=== PATIENT | male | born 1970 | race Caucasian/White ===

== ENCOUNTER 2018-03-29 10:20 | Emergency (ER) | payer OTHER ==
[~2018-03-29] VITALS: Ht 188 cm; Wt 98.4 kg
[2018-03-29 10:22] VITALS: BP 151/84
--- NOTE | 2018-03-29 11:59 | ED NECK/BACK PAIN COMPLAINT ---
History of Present Illness General Chief Complaint: Low Back Pain/Injury Stated Complaint: LOWER BACK PAIN NO INJURY Source: patient Exam Limitations: no limitations Vital Signs & Intake/Output Vital Signs & Intake/Output Vital Signs Date Time Temp Pulse Resp B/P B/P Pulse O2 O2 Flow FiO2 Mean Ox Delivery Rate 03/29 1204 97 03/29 1022 97.7 86 18 151/84 98 Room Air Room Air Allergies Coded Allergies: Penicillins (Intermediate, RASH 03/29/18) Reconcile Medications No Known Home Medications Triage Note: PT TO ED WITH C/O LOW BACK PAIN DOWN LEFT LEG, PT HAS HX OF BULGING DISCS L4-L5, HAD A KICK BOXING INJURY, AND SHOVELING, FELT A LITTLE BETTER, THIS AM INCREASED PAIN, DIFFICULTY MOVING. Triage Nurses Notes Reviewed? yes Onset: Abrupt Duration: day(s):, constant, getting worse Timing: recent history Quality/Severity: moderate, severe Location: lumbar spine HPI: 47-year-old male comes into the emergency room for further evaluation of severe low back pain that radiates down his left leg. Patient reports she's been having some low back issues with radiation down his legs since the beginning of 2017 in November. The symptoms were intermittent. Over last 2 days he reports significant increase in pain. Denies any urinary bowel function. Denies any genital numbness. Denies any abdominal pain fever chills vomiting. Any type of movement makes the pain worse. He comes in for further evaluation. (Ruiz Osman) Past History Travel History Traveled to [place] past 21 day No Medical History Any Pertinent Medical History? see below for history Neurological: NONE EENT: allergies Cardiovascular: NONE Respiratory: NONE Gastrointestinal: GERD Hepatic: NONE Renal: NONE Musculoskeletal: disk herniation Psychiatric: NONE Endocrine: Joseph's thyroiditis Blood Disorders: NONE Cancer(s): NONE Surgical History Surgical History: non-contributory Psychosocial History What is your primary language Guinean Tobacco Use: Never used ETOH Use: occasional use Illicit Drug Use: denies illicit drug use Family History Hx Contributory? No (Ruiz Osman) Review of Systems Review of Systems Constitutional: Reports: no symptoms. Eyes: Reports: no symptoms. Ears, Nose, Throat, Mouth: Reports: no symptoms. Respiratory: Reports: no symptoms. Cardiovascular: Reports: no symptoms. Gastrointestinal/Abdominal: Reports: no symptoms. Musculoskeletal: Reports: see HPI. Skin: Reports: no symptoms. Neurological/Psychological: Reports: see HPI. All Other Systems: Reviewed and Negative (Ruiz Osman) Physical Exam Physical Exam General Appearance: well developed/nourished, mild distress Head: atraumatic Eyes: Bilateral: normal appearance. Ears, Nose, Throat, Mouth: hearing grossly normal, moist mucous membrane Neck: normal inspection Respiratory: no respiratory distress Cardiovascular: regular rate/rhythm Back: normal inspection Extremities: normal range of motion Straight Leg Raising: Left: Pain at ____ degrees (10). Motor: Deficit L4 Right: No Deficit L4 Left: No Deficit L5 Right: No Deficit L5 Left: No Deficit S1 Right: No Deficit S1 Right: No Neurologic/Psych: awake, alert, oriented x 3, normal mood/affect Skin: intact, normal color, warm/dry Core Measures CVA/TIA Diagnosis: No (Ruiz Osman) Progress Differential Diagnosis: cauda equina syn, herniated disc, myofascial strain, sciatica, spinal cord inj Plan of Care: Orders Procedure Date/time Status MRI-LUMBAR SPINE 03/29 1200 Active Diagnostic Imaging: Viewed by Me: MRI. Discussed w/RAD: MRI. Radiology Impression: PATIENT: BOB EWING PRESENT AGE: 47 PATIENT ACCOUNT NO: [id number] : 71 LOCATION: [facility] ORDERING PHYSICIAN: Ruiz BOWER SERVICE DATE: 03/29/18-1199 EXAM TYPE: MRI - MRI-LUMBAR SPINE EXAMINATION: MR LUMBAR SPINE WITHOUT CONTRAST CLINICAL INFORMATION: Low back pain radiating down left leg. COMPARISON: MR images of lumbar spine, 06/19/2011 TECHNIQUE: MRI of the lumbar spine without contrast was obtained using routine sequences on a high-field 1.5 Vilma magnet. FINDINGS: VERTEBRAL BODIES AND PARASPINAL STRUCTURES: The lumbar vertebra have well preserved height and alignment. No fracture, subluxation, acute endplate erosion or paraspinal fluid collection. There are old Schmorl's nodes of several endplates, including the L3 and L5 endplates. CONUS MEDULLARIS AND CAUDA EQUINA: The conus medullaris is normal, terminating at the L1-L2 level. SPINAL LEVELS: L1-L2: The intervertebral disc has normal contour. No disc herniation. The central spinal canal and neural foramina are widely patent. L2-L3: Negligible bulging of the intervertebral disc. The central spinal canal and neural foramina are widely patent. L3-L4: Chronic loss of the T2 signal of the intervertebral disc. Chronic, mild disc bulge and superimposed, very small central disc protrusion without central canal or neural foraminal stenosis. L4-L5: No acute findings compared to 06/19/2011. Minimal disc bulge and minimal facet arthropathy. The central spinal canal and neural foramina are widely patent. L5- S1: The size of the left paracentral disc herniation has increased compared to 06/19/2011. The extruded disc compresses the transiting left S1 nerve root. No evidence of central canal or neural foraminal stenosis. IMPRESSION: Compared to 06/19/2011, the most significant interval change is at the L5-S1 level. The left paracentral disc herniation at L5-S1 has increased in size. The extruded disc compresses the transiting left S1 nerve root. DICTATED BY: Bob Barbosa MD DATE/TIME DICTATED:03/29/181328 TELETYPESETTER:CROW DATE/TIME TRANSCRIBED:03/29/181328 CONFIDENTIAL, DO NOT COPY WITHOUT APPROPRIATE AUTHORIZATION. <Electronically signed in Other Vendor System> SIGNED BY: Bob Barbosa MD 03/29/18 [id number] (Ruiz Osman) Departure Departure Disposition: HOME OR SELF CARE Condition: Stable Clinical Impression Primary Impression: Lumbar disc herniation Referrals: Cristina JANE,Damien Duran (PCP/Family) Additional Instructions: Take Percocet, Medrol Dosepak, Flexeril, and ibuprofen as prescribed. Follow-up with your orthopedic surgeon. Return if any other concerns. Please go over all results of today's visit with your primary care doctor. Contact your primary care doctor to let them know you were here in the emergency room. There may be nonspecific findings which may not be related to your visit today here in the emergency room but may require further evaluation and chronic monitoring by your primary care doctor. If you had a laceration today the chance of foreign body always remains. You should follow-up with your primary care doctor for recheck in 3-5 days for a wound check. If you had an x-ray done there is a chance that a fracture could have been missed on initial read and you should follow-up with your primary care doctor for repeat x-rays if symptoms persist. If your blood pressure was elevated here in the emergency room please have rechecked by hyour primary care doctor within the next 48. If you were prescribed a narcotic here in the emergency room or any type of controlled substances you're not allowed to drive while taking this medication or operate any type of heavy machinery. Narcotics can make you feel lightheaded dizziness nausea and can cause constipation. You may need to citrus picker a stool softener. Thank you for choosing [facility] emergency room. Please return to the emergency room immediately if you have any other concerns worsening of symptoms. Departure Forms: Customer Survey General Discharge Information Prescriptions: Current Visit Scripts No Known Home Medications Comments 03/29/2018 2:54:45 PM patient clinically looks well. Patient is in no apparent distress. Patient is nontoxic-appearing. Symptoms are most consistent with disc herniation. No motor weakness. Patient has appointment with orthopedic doctor on Tuesday. (Ruiz Osman) PA/PHARMACY SCHEDULER Co-Sign Statement Statement: ED Attending supervision documentation- [] I saw and evaluated the patient. I have also reviewed all the pertinent lab results and diagnostic results. I agree with the findings and the plan of care as documented in the PA's/PHARMACY SCHEDULER's documentation. [x] I have reviewed the ED Record and agree with the PA's/PHARMACY SCHEDULER's documentation. [] Additions or exceptions (if any) to the PAs/PHARMACY SCHEDULER's note and plan are summarized below: [] (Erlin Sneed DO
[2018-03-29] MEDS ORDERED: NAPROSYN500 M1 PO (12:12)
[2018-03-29] MEDS ORDERED: MEDROL4 M2 PO (12:12)
[2018-03-29] MEDS ORDERED: CYCLOBENZAPRINE10 M1 PO (12:12)
[2018-03-29] MEDS ORDERED: PERCOCET 5-3251 EACH PO (12:12)
--- NOTE | 2018-03-29 13:42 | MRI REPORT ---
EXAMINATION: MR LUMBAR SPINE WITHOUT CONTRAST CLINICAL INFORMATION: Low back pain radiating down left leg. COMPARISON: MR images of lumbar spine, 06/19/2011 TECHNIQUE: MRI of the lumbar spine without contrast was obtained using routine sequences on a high-field 1.5 Vilma magnet. FINDINGS: VERTEBRAL BODIES AND PARASPINAL STRUCTURES: The lumbar vertebra have well preserved height and alignment. No fracture, subluxation, acute endplate erosion or paraspinal fluid collection. There are old Schmorl's nodes of several endplates, including the L3 and L5 endplates. CONUS MEDULLARIS AND CAUDA EQUINA: The conus medullaris is normal, terminating at the L1-L2 level. SPINAL LEVELS: L1-L2: The intervertebral disc has normal contour. No disc herniation. The central spinal canal and neural foramina are widely patent. L2-L3: Negligible bulging of the intervertebral disc. The central spinal canal and neural foramina are widely patent. L3-L4: Chronic loss of the T2 signal of the intervertebral disc. Chronic, mild disc bulge and superimposed, very small central disc protrusion without central canal or neural foraminal stenosis. L4-L5: No acute findings compared to 06/19/2011. Minimal disc bulge and minimal facet arthropathy. The central spinal canal and neural foramina are widely patent. L5-S1: The size of the left paracentral disc herniation has increased compared to 06/19/2011. The extruded disc compresses the transiting left S1 nerve root. No evidence of central canal or neural foraminal stenosis. IMPRESSION: Compared to 06/19/2011, the most significant interval change is at the L5-S1 level. The left paracentral disc herniation at L5-S1 has increased in size. The extruded disc compresses the transiting left S1 nerve root.
== END 2018-03-29 14:16 ==
LOC: ERH 10:20
DX: M51.26 Other intervertebral disc displacement, lumbar region (principal)
CPT/HCPCS: 72148; 96372; J1885